=== PATIENT | male | born 1970 | race American Indian/Alaskan Native ===

== ENCOUNTER 2017-09-18 03:23 | Emergency (ER) | payer MEDICARE ==
--- NOTE | 2017-09-18 03:35 | C.PDOC ---
History Of Present Illness Patient presents to the ER requesting a sandwich and place to spend the night, states he is homeless. Denies chest pain, palpitations, or SOB. Time Seen by Provider: 09/18/17 03:34 Chief Complaint (Nursing): Dizziness/Lightheaded History Per: Patient History/Exam Limitations: no limitations Onset/Duration Of Symptoms: Hrs Current Symptoms Are (Timing): Still Present Seizure Or Post-ictal Symptoms: None Fall Associated With With Symptoms: No Recent travel outside of the [place]: No Past Medical History Reviewed: Historical Data, Nursing Documentation, Vital Signs Vital Signs: Last Vital Signs Temp 97.5 F L 09/18/17 03:29 Pulse 75 09/18/17 03:29 Resp 16 09/18/17 03:29 BP 107/65 09/18/17 03:29 Pulse Ox 100 09/18/17 03:43 - Medical History PMH: Anemia, Bipolar Disorder, Diabetes, HTN Surgical History: No Surg Hx Family History: States: No Known Family Hx - Social History Hx Tobacco Use: Yes (heavy smoker) Hx Alcohol Use: No Hx Substance Use: No - Immunization History Hx Tetanus Toxoid Vaccination: No Hx Influenza Vaccination: Yes Hx Pneumococcal Vaccination: No Review Of Systems Constitutional: Negative for: Fever, Chills Cardiovascular: Negative for: Chest Pain, Palpitations Respiratory: Negative for: Shortness of Breath Gastrointestinal: Negative for: Nausea, Vomiting Physical Exam - Physical Exam Appears: Non-toxic, No Acute Distress Skin: Warm, Dry Head: Normacephalic Oral Mucosa: Moist Chest: Symmetrical Cardiovascular: Rhythm Regular Respiratory: No Rales, No Rhonchi, No Wheezing Gastrointestinal/Abdominal: Soft, No Tenderness Neurological/Psych: Oriented x3 ED Course And Treatment O2 Sat by Pulse Oximetry: 100 Pulse Ox Interpretation: Normal Disposition Counseled Patient/Family Regarding: Studies Performed, Diagnosis, Need For Followup - Disposition Referrals: at [facility] [Outside] Disposition: HOME/ ROUTINE Disposition Time: 03:35 Condition: FAIR Instructions: Anxiety (ED) Forms: [facility] (Uruguayan) - Clinical Impression Clinical Impression: Homeless - Scribe Statement The provider has reviewed the documentation as recorded by the Scribe Dwayne Mcgee All medical record entries made by the Scribe were at my direction and personally dictated by me. I have reviewed the chart and agree that the record accurately reflects my personal performance of the history, physical exam, medical decision making, and the department course for this patient. I have also personally directed, reviewed, and agree with the discharge instructions and disposition.
[2017-09-18 05:54] VITALS: BP 112/74; PULSE 72; RESP 18; TEMP 97.2; O2SAT 98
== END 2017-09-18 05:50 | disposition home or self-care (01) ==
LOC: C.ER 03:23
DX: Z59.0 Homelessness (principal); I10 Essential (primary) hypertension; F17.210 Nicotine dependence, cigarettes, uncomplicated

== ENCOUNTER 2017-11-17 00:11 | Emergency (ER) | payer MEDICARE ==
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
[2017-11-17 02:23] VITALS: BP 132/91; PULSE 84; RESP 18; TEMP 98.1
[2017-11-17 04:06] VITALS: O2SAT 99
== END 2017-11-17 02:55 | disposition home or self-care (01) ==
LOC: C.ER 00:11
DX: Z00.00 Encounter for general adult medical examination without abnormal findings (principal); Y04.0XXA Assault by unarmed brawl or fight, initial encounter; I10 Essential (primary) hypertension; E11.9 Type 2 diabetes mellitus without complications; F17.210 Nicotine dependence, cigarettes, uncomplicated

== ENCOUNTER 2018-01-24 13:57 | Emergency (ER) | payer MEDICARE ==
[2018-01-24 14:42] LABS: BASO # 0.1 K/uL (0.0-0.2); EOS # 0.3 K/uL (0.0-0.7); EOS % 4.8 % (0.0-4.0); HEMOGLOBIN 12.1 g/dL (12.0-18.0); LYMPH # 1.7 K/uL (1.0-4.3); MEAN CELL VOLUME 72.5 fL (80.0-94.0); MEAN CORPUSCULAR HEMOGLOBIN 23.5 pg (27.0-31.0); MEAN CORPUSCULAR HGB CONC 32.5 g/dL (33.0-37.0); MEAN PLATELET VOLUME 7.3 fL (7.2-11.7); MONO # 0.5 K/uL (0.0-0.8); MONO % 7.7 % (0.0-10.0); NEUT # 3.7 K/uL (1.8-7.0); NEUT % 59.5 % (50.0-75.0); NRBC % 0.1 % (0.0-2.0); RBC 5.16 Mil/uL (4.40-5.90); RED CELL DISTRIBUTION WIDTH 14.7 % (11.5-14.5); WHITE BLOOD COUNT 6.2 K/uL (4.8-10.8)
[2018-01-24 14:57] LABS: URINE BILIRUBIN NEGATIVE (NEGATIVE); URINE BLOOD NEGATIVE (NEGATIVE); URINE CLARITY Clear (Clear); URINE COLOR Yellow (YELLOW); URINE GLUCOSE (UA) NORMAL (Normal); URINE LEUKOCYTE ESTERASE NEG Leu/uL (Negative); URINE PROTEIN NEGATIVE (NEGATIVE); URINE UROBILINOGEN NORMAL mg/dL (0.2-1.0)
[2018-01-24 15:01] LABS: ALT/SGPT 31 U/L (21-72); AST/SGOT 42 U/L (17-59); BLOOD UREA NITROGEN 16 mg/dL (9-20); CALCIUM 8.9 mg/dl (8.6-10.4); GFR AFRICAN-AMERICAN > 60; GFR NON-AFRICAN AMERICAN > 60
[2018-01-24 15:04] LABS: BARBITURATES, UR NEGATIVE (NEGATIVE); OPIATES, UR NEGATIVE (NEGATIVE); PHENCYCLIDINE, UR NEGATIVE (NEGATIVE)
[2018-01-24 15:27] LABS: BENZODIAZEPINES, UR NEGATIVE (NEGATIVE)
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
[2018-01-24 16:13] VITALS: RESP 18
[2018-01-24 16:48] VITALS: BP 105/78; PULSE 73; TEMP 97.8; O2SAT 96
--- NOTE | 2018-01-26 22:22 | CARD ---
APPROVED REPORT EKG Measurement Heart [id number] [id number] <Conclusion> Sinus rhythm with 1st degree AV block Left axis deviation Septal infarct, age undetermined Abnormal ECG
== END 2018-01-24 16:25 | disposition home or self-care (01) ==
LOC: C.ER 13:57
DX: R42 Dizziness and giddiness (principal)
CPT/HCPCS: 80053; 81001; 85025; 99285; G0480

== ENCOUNTER 2018-02-18 17:56 | Emergency (ER) | payer MEDICARE ==
[2018-02-18 18:21] VITALS: O2SAT 99
--- NOTE | 2018-02-18 19:23 | C.PDOC ---
History Of Present Illness 47 year old male with PMHx of DM presents to the ED c/o headache and left foot pain. Patient reports he does not take anything for his diabetes is just diet controlled. Patient associated his symptoms with diarrhea, increased thirst and urinary frequency. Patient states he is homeless right now. Patient denies CP, SOB, headache, fever, chills, nausea, injury, fall, trauma. Chief Complaint (Nursing): Headache History Per: Patient History/Exam Limitations: no limitations Onset/Duration Of Symptoms: Days Current Symptoms Are (Timing): Gone Quality: "Pain" Preceeding Symptoms: None Recent travel outside of the [place]: No Additional History Per: Patient Past Medical History Reviewed: Historical Data, Nursing Documentation, Vital Signs Vital Signs: Last Vital Signs Temp 97.4 F L 02/18/18 18:17 Pulse 78 02/18/18 18:17 Resp 20 02/18/18 18:17 BP 110/73 02/18/18 18:17 Pulse Ox 99 02/18/18 19:36 - Medical History PMH: Anemia, Bipolar Disorder, Diabetes, HTN Denies: Chronic Kidney Disease Surgical History: No Surg Hx Family History: States: Unknown Family Hx - Social History Hx Tobacco Use: Yes (heavy smoker) Hx Alcohol Use: No Hx Substance Use: No - Immunization History Hx Tetanus Toxoid Vaccination: No Hx Influenza Vaccination: Yes Hx Pneumococcal Vaccination: Yes Review Of Systems Constitutional: Negative for: Fever, Chills Cardiovascular: Negative for: Chest Pain, Palpitations Respiratory: Negative for: Cough Gastrointestinal: Negative for: Abdominal Pain Skin: Negative for: Rash Neurological: Positive for: Headache. Negative for: Dizziness Physical Exam - Physical Exam Appears: Non-toxic, No Acute Distress Skin: Normal Color, Warm, Dry Head: Atraumatic, Normacephalic Eye(s): bilateral: Normal Inspection Nose: No Discharge Oral Mucosa: Moist Teeth: No Normal Dentition (Poor dentition), Edentulous Neck: Normal ROM, Supple Chest: Symmetrical Cardiovascular: Rhythm Regular, No Murmur Respiratory: Normal Breath Sounds, No Rales, No Rhonchi, No Wheezing Gastrointestinal/Abdominal: Soft, No Tenderness, No Guarding, No Rebound Extremity: Normal ROM, No Tenderness, Capillary Refill (< 2 seconds), No Swelling, Other (left foot hammer second toe) Pulses: Left Dorsalis Pedis: Normal, Right Dorsalis Pedis: Normal Neurological/Psych: Oriented x3, Normal Speech, Normal Motor, Normal Sensation Gait: Steady ED Course And Treatment - Laboratory Results Result Diagrams: 02/18/18 19:32 02/18/18 19:32 O2 Sat by Pulse Oximetry: 99 (On RA) Pulse Ox Interpretation: Normal Medical Decision Making Medical Decision Making: Impression: general malaise Plan: * CXR * Labs Disposition - Disposition Referrals: [facility] at [facility] [Outside] Disposition: HOME/ ROUTINE Disposition Time: 22:31 Condition: FAIR Instructions: Viral Syndrome (DC) Forms: [employer] (Spanish) Print Language: AZERI - Clinical Impression Clinical Impression: Hammer toe, Viral syndrome - Scribe Statement The provider has reviewed the documentation as recorded by the Scribe Valentin Coto All medical record entries made by the Scribe were at my direction and personally dictated by me. I have reviewed the chart and agree that the record accurately reflects my personal performance of the history, physical exam, medical decision making, and the department course for this patient. I have also personally directed, reviewed, and agree with the discharge instructions and disposition.
[2018-02-18 19:36] LABS: BASO # 0.1 K/uL (0.0-0.2); BASO % 0.8 % (0.0-2.0); EOS # 0.2 K/uL (0.0-0.7); EOS % 3.2 % (0.0-4.0); LYMPH # 1.6 K/uL (1.0-4.3); MEAN CELL VOLUME 72.6 fL (80.0-94.0); MEAN CORPUSCULAR HEMOGLOBIN 23.2 pg (27.0-31.0); MEAN PLATELET VOLUME 8.2 fL (7.2-11.7); MONO # 0.6 K/uL (0.0-0.8); MONO % 9.8 % (0.0-10.0); NEUT # 3.7 K/uL (1.8-7.0); NEUT % 60.2 % (50.0-75.0); RBC 4.73 Mil/uL (4.40-5.90); RED CELL DISTRIBUTION WIDTH 14.5 % (11.5-14.5); WHITE BLOOD COUNT 6.2 K/uL (4.8-10.8)
[2018-02-18 19:47] LABS: BLOOD UREA NITROGEN 14 mg/dL (9-20); CALCIUM 9.2 mg/dl (8.6-10.4); GFR AFRICAN-AMERICAN > 60; GFR NON-AFRICAN AMERICAN > 60
[2018-02-18 23:43] VITALS: BP 121/76; PULSE 83; RESP 18; TEMP 98
--- NOTE | 2018-02-19 08:24 | RAD ---
PROCEDURE: CHEST RADIOGRAPH, 1 VIEW HISTORY: SOB COMPARISON: 10/22/2015 FINDINGS: LUNGS: Clear. PLEURA: No pneumothorax or pleural fluid seen. CARDIOVASCULAR: Normal. OSSEOUS STRUCTURES: Healed fracture right 7th posterior rib. VISUALIZED UPPER ABDOMEN: Normal. OTHER FINDINGS: None. IMPRESSION: No active disease.
== END 2018-02-18 22:06 | disposition home or self-care (01) ==
LOC: C.ER 17:56
DX: B34.9 Viral infection, unspecified (principal); M20.42 Other hammer toe(s) (acquired), left foot; E11.9 Type 2 diabetes mellitus without complications; I10 Essential (primary) hypertension; D64.9 Anemia, unspecified; F17.210 Nicotine dependence, cigarettes, uncomplicated

== ENCOUNTER 2018-12-26 01:19 | Emergency (ER) | payer MEDICARE ==
[2018-12-26 01:42] VITALS: RESP 20
--- NOTE | 2018-12-26 03:23 | C.PDOC ---
History Of Present Illness 48 year old homeless male presents to the ED c/o left forearm pain. Patient has a recent left forearm fracture for which was seen at [facility]. Patient was placed on a splint, however he claims today he fell and accidentally broke his splint. Patient is worried he might have injured his left forearm again. Patient denies LOC, headache, weakness, numbness. Time Seen by Provider: 12/26/18 01:52 Chief Complaint (Nursing): Upper Extremity Problem/Injury History Per: Patient History/Exam Limitations: no limitations Onset/Duration Of Symptoms: Days Current Symptoms Are (Timing): Still Present Quality: "Pain" Exacerbating Factor(s): Strenuous Use Of Affected Area, Movement Recent travel outside of the [place]: No Additional History Per: Patient Past Medical History Reviewed: Historical Data, Nursing Documentation, Vital Signs Vital Signs: Last Vital Signs Temp 97.9 F 12/26/18 01:40 Pulse 79 12/26/18 01:40 Resp 20 12/26/18 01:40 BP 112/72 12/26/18 01:40 Pulse Ox 100 12/26/18 01:40 - Medical History PMH: Anemia, Bipolar Disorder, Diabetes, HTN Denies: Chronic Kidney Disease Surgical History: No Surg Hx Family History: States: Unknown Family Hx - Social History Hx Tobacco Use: Yes (heavy smoker) Hx Alcohol Use: No Hx Substance Use: No - Immunization History Hx Tetanus Toxoid Vaccination: No Hx Influenza Vaccination: Yes Hx Pneumococcal Vaccination: Yes Review Of Systems Constitutional: Negative for: Fever, Chills Cardiovascular: Negative for: Chest Pain Respiratory: Negative for: Shortness of Breath Gastrointestinal: Negative for: Nausea, Vomiting, Abdominal Pain Musculoskeletal: Positive for: Arm Pain Skin: Negative for: Rash Neurological: Negative for: Weakness, Numbness, Headache, Dizziness Physical Exam - Physical Exam Appears: Non-toxic, No Acute Distress Skin: Normal Color, Warm, Dry Head: Atraumatic, Normacephalic Eye(s): bilateral: Normal Inspection Neck: Normal ROM, Supple Extremity: No Normal ROM (left arm due to pain), Tenderness (posterior aspect mid to distal left forearm ), Capillary Refill (< 2 seconds), Deformity (noted on left posterior forearm), Swelling (minimal left hand), Other (no erythema or open wounds noted on left forearm ) Extremity: Bilateral: Normal Color And Temperature Pulses: Left Radial: Normal, Right Radial: Normal Neurological/Psych: Oriented x3, Normal Speech, Normal Cognition, Normal Motor, Normal Sensation Gait: Steady ED Course And Treatment O2 Sat by Pulse Oximetry: 100 (ON RA) Pulse Ox Interpretation: Normal - Other Rad Left forearm X-Ray X-Ray: Interpreted by Me, Viewed By Me Interpretation: non acute mid shaft ulnar fracture Progress Note: Patient was placed on a new short arm splint on his left forearm done by CP and checked by me. Patient is advised to follow up with ortho clinic for further evaluation. Disposition Counseled Patient/Family Regarding: Diagnosis, Need For Followup - Disposition Referrals: [facility] at [place] [Outside] [facility] [Outside] Disposition: HOME/ ROUTINE Disposition Time: 04:06 Condition: GOOD Additional Instructions: Keep splint on until seen in clinic by orthopedist Return to ER if worse Instructions: Forearm Fracture (DC) Forms: [facility] (Kenyan) - Clinical Impression Clinical Impression: Left forearm fracture - PA / INSTRUMENT TECHNOLOGIST / Resident Statement MD/DO has reviewed & agrees with the documentation as recorded. - Scribe Statement The provider has reviewed the documentation as recorded by the Scribe Valentin Coto All medical record entries made by the Heleanibsania were at my direction and personally dictated by me. I have reviewed the chart and agree that the record accurately reflects my personal performance of the history, physical exam, medical decision making, and the department course for this patient. I have also personally directed, reviewed, and agree with the discharge instructions and disposition.
[2018-12-26 06:18] VITALS: BP 138/78; PULSE 84; TEMP 98; O2SAT 97
--- NOTE | 2018-12-26 12:55 | RAD ---
Date of service: 12/26/2018 PROCEDURE: Radiographs of the Left Forearm HISTORY: s/p fx, fell today COMPARISON: None available. TECHNIQUE: Frontal and lateral views obtained. FINDINGS: BONES: There is a nonunited transverse fracture in the distal diaphysis of the ulna. There is no acute displaced fracture. Bone alignment is normal. JOINT SPACES: Unremarkable. OTHER FINDINGS: None. IMPRESSION: No acute displaced fracture or dislocation. Nonunited transverse fracture in the distal diaphysis of ulna.
== END 2018-12-26 06:16 | disposition home or self-care (01) ==
LOC: C.ER 01:19
DX: S52.692G Other fracture of lower end of left ulna, subsequent encounter for closed fracture with delayed healing (principal); W18.30XD Fall on same level, unspecified, subsequent encounter

== ENCOUNTER 2019-01-13 20:53 | Emergency (ER) | payer MEDICARE ==
[2019-01-13 21:22] VITALS: RESP 20
[2019-01-13] MEDS ORDERED: Sodium Chloride 0.9% 500 ML IV ONE (21:24)
[2019-01-13] MEDS ORDERED: Sodium Chloride 0.9% 1,000 ML IV ONE (21:25)
--- NOTE | 2019-01-13 21:25 | C.PDOC ---
History Of Present Illness 48 year old male with PMHx of DM presents to the ED c/o dizziness and lightheadedness for the past few days. Patient reports he feels like his mouth his dry. Patient denies fever, chills, nausea, vomit, diarrhea, headache, rash, CP, SOB, palpitations. Chief Complaint (Nursing): Medical Clearance History Per: Patient History/Exam Limitations: no limitations Onset/Duration Of Symptoms: Days Current Symptoms Are (Timing): Still Present Recent travel outside of the [place]: No Additional History Per: Patient Past Medical History Reviewed: Historical Data, Nursing Documentation, Vital Signs Vital Signs: Last Vital Signs Temp 97.9 F 01/13/19 21:17 Pulse 95 H 01/13/19 21:17 Resp 20 01/13/19 21:17 BP 113/71 01/13/19 21:17 Pulse Ox 100 01/13/19 21:17 - Medical History PMH: Anemia, Bipolar Disorder, Diabetes, HTN Denies: Chronic Kidney Disease Surgical History: No Surg Hx Family History: States: Unknown Family Hx - Social History Hx Tobacco Use: Yes (heavy smoker) Hx Alcohol Use: Yes Hx Substance Use: No - Immunization History Hx Tetanus Toxoid Vaccination: No Hx Influenza Vaccination: No Hx Pneumococcal Vaccination: No Review Of Systems Constitutional: Negative for: Fever, Chills Cardiovascular: Negative for: Chest Pain, Palpitations Respiratory: Negative for: Shortness of Breath Gastrointestinal: Negative for: Nausea, Vomiting, Abdominal Pain Skin: Negative for: Rash Neurological: Negative for: Weakness, Numbness, Headache, Dizziness Physical Exam - Physical Exam Appears: Non-toxic, No Acute Distress Skin: Normal Color, Warm, Dry Head: Atraumatic, Normacephalic Eye(s): bilateral: Normal Inspection Oral Mucosa: Moist Neck: Normal ROM, Supple Chest: Symmetrical Cardiovascular: Rhythm Regular Respiratory: Normal Breath Sounds, No Rales, No Rhonchi, No Wheezing Gastrointestinal/Abdominal: Soft, No Tenderness, No Guarding, No Rebound Extremity: Normal ROM, No Tenderness, No Swelling Neurological/Psych: Oriented x3, Normal Speech, Normal Cognition, Other (non focal) Gait: Steady ED Course And Treatment - Laboratory Results Result Diagrams: 01/13/19 21:36 01/13/19 21:36 ECG: Interpreted By Me, Viewed By Me ECG Rhythm: Sinus Rhythm ECG Interpretation: No Acute Changes Interpretation Of ECG: Sinus rhythm with 1st degree AV block, poor R wave progression V1 to V3, no nacute changes, abnormal tracings. Rate From EC O2 Sat by Pulse Oximetry: 100 (ON RA) Pulse Ox Interpretation: Normal Medical Decision Making Medical Decision Making: Plan: * Labs * EKG * IV fluids * UA Disposition Counseled Patient/Family Regarding: Diagnosis - Disposition Referrals: [facility] at [facility] [Outside] Disposition: HOME/ ROUTINE Disposition Time: 22:05 Condition: STABLE Forms: [employer] (Cambodian) - POA Present On Arrival: None - Clinical Impression Clinical Impression: Medical assessment, No acute medical problems - Scribe Statement The provider has reviewed the documentation as recorded by the Scribe Valentin Coto All medical record entries made by the Scribe were at my direction and personally dictated by me. I have reviewed the chart and agree that the record accurately reflects my personal performance of the history, physical exam, medical decision making, and the department course for this patient. I have also personally directed, reviewed, and agree with the discharge instructions and disposition.
[2019-01-13 21:39] LABS: BASO # 0.1 K/uL (0.0-0.2); BASO % 1.2 % (0.0-2.0); EOS # 0.3 K/uL (0.0-0.7); EOS % 4.7 % (0.0-4.0); HEMOGLOBIN 11.5 g/dL (12.0-18.0); LYMPH # 1.9 K/uL (1.0-4.3); LYMPH % 30.7 % (20.0-40.0); MEAN CELL VOLUME 71.4 fL (80.0-94.0); MEAN CORPUSCULAR HEMOGLOBIN 22.5 pg (27.0-31.0); MEAN CORPUSCULAR HGB CONC 31.5 g/dL (33.0-37.0); MEAN PLATELET VOLUME 7.6 fL (7.2-11.7); MONO # 0.6 K/uL (0.0-0.8); MONO % 9.6 % (0.0-10.0); NEUT # 3.3 K/uL (1.8-7.0); NEUT % 53.8 % (50.0-75.0); RBC 5.14 Mil/uL (4.40-5.90); RED CELL DISTRIBUTION WIDTH 13.6 % (11.5-14.5); WHITE BLOOD COUNT 6.2 K/uL (4.8-10.8)
--- NOTE | 2019-01-13 21:44 | C.PDOC ---
History Of Present Illness DUPLICATE CHART Chief Complaint (Nursing): Medical Clearance Past Medical History Vital Signs: Last Vital Signs Temp 97.9 F 01/13/19 21:17 Pulse 95 H 01/13/19 21:17 Resp 20 01/13/19 21:17 BP 113/71 01/13/19 21:17 Pulse Ox 100 01/13/19 21:17 - Medical History PMH: Anemia, Bipolar Disorder, Diabetes, HTN Denies: Chronic Kidney Disease Family History: States: Unknown Family Hx - Social History Hx Tobacco Use: Yes (heavy smoker) Hx Alcohol Use: Yes Hx Substance Use: No - Immunization History Hx Tetanus Toxoid Vaccination: No Hx Influenza Vaccination: No Hx Pneumococcal Vaccination: No ED Course And Treatment - Laboratory Results Result Diagrams: 01/13/19 21:36 01/13/19 21:36 O2 Sat by Pulse Oximetry: 100 Disposition - Disposition Referrals: [facility] [Outside] Disposition: HOME/ ROUTINE Condition: STABLE Forms: [facility] (Hungarian) - Clinical Impression Clinical Impression: Medical assessment, No acute medical problems
[2019-01-13 21:50] LABS: ALB/GLOB RATIO 1.2 (1.0-2.1); ALBUMIN 4.1 g/dL (3.5-5.0); ALT/SGPT 16 U/L (21-72); AST/SGOT 32 U/L (17-59); BLOOD UREA NITROGEN 19 mg/dL (9-20); CALCIUM 9.4 mg/dl (8.6-10.4); GFR NON-AFRICAN AMERICAN > 60
[2019-01-13 23:25] VITALS: BP 107/69
[2019-01-13 23:26] VITALS: PULSE 80; TEMP 98.2
--- NOTE | 2019-01-15 21:08 | CARD ---
APPROVED REPORT Date of service: 01/13/2019 EKG Measurement Heart [id number] <Conclusion> Sinus rhythm with 1st degree AV block Left axis deviation Septal infarct, age undetermined Abnormal ECG
[2019-01-16 19:30] VITALS: O2SAT 98
== END 2019-01-13 23:35 | disposition home or self-care (01) ==
LOC: C.ER 20:53
DX: Z00.00 Encounter for general adult medical examination without abnormal findings (principal)
CPT/HCPCS: 80053; 82948; 85025; 93005; 99283; J7030; J7040

== ENCOUNTER 2019-03-20 02:49 | Emergency (ER) | payer MEDICARE, MEDICAID ==
[2019-03-20 03:24] VITALS: O2SAT 100
--- NOTE | 2019-03-20 03:45 | C.PDOC ---
History Of Present Illness 48 year old male presents to the ED c/o diarrhea, that resolved [employer]. Patient denies fever, chills, nausea, vomit, abdominal pain, dysuria, hematuria, recent travel, sick contacts. Time Seen by Provider: 03/20/19 03:12 Chief Complaint (Nursing): Medical Clearance History Per: Patient History/Exam Limitations: no limitations Onset/Duration Of Symptoms: Days Current Symptoms Are (Timing): Better Recent travel outside of the [place]: No Additional History Per: Patient Past Medical History Reviewed: Historical Data, Nursing Documentation, Vital Signs Vital Signs: Last Vital Signs Temp 97.6 F 03/20/19 03:07 Pulse 74 03/20/19 03:07 Resp 20 03/20/19 03:07 BP 114/70 03/20/19 03:07 Pulse Ox 100 03/20/19 03:07 Primary Care Provider: Fannie Byrd - Medical History PMH: Anemia, Bipolar Disorder, Diabetes, HTN Denies: Chronic Kidney Disease Surgical History: No Surg Hx Family History: States: Unknown Family Hx - Social History Hx Tobacco Use: Yes (heavy smoker) Hx Alcohol Use: Yes Hx Substance Use: No - Immunization History Hx Tetanus Toxoid Vaccination: No Hx Influenza Vaccination: No Hx Pneumococcal Vaccination: Yes Review Of Systems Constitutional: Negative for: Fever, Chills Cardiovascular: Negative for: Chest Pain Respiratory: Negative for: Shortness of Breath Gastrointestinal: Positive for: Diarrhea. Negative for: Nausea, Vomiting, Abdominal Pain Genitourinary: Negative for: Dysuria Musculoskeletal: Negative for: Back Pain Skin: Negative for: Rash Physical Exam - Physical Exam Appears: Non-toxic, No Acute Distress Skin: Normal Color, Warm, Dry Head: Atraumatic, Normacephalic Eye(s): bilateral: Normal Inspection Neck: Normal ROM, Supple Chest: Symmetrical Cardiovascular: Rhythm Regular Respiratory: Normal Breath Sounds, No Rales, No Rhonchi, No Wheezing Gastrointestinal/Abdominal: Soft, No Tenderness, No Distention Extremity: Normal ROM, No Tenderness, No Swelling Neurological/Psych: Oriented x3, Normal Speech, Normal Cognition Gait: Steady ED Course And Treatment O2 Sat by Pulse Oximetry: 100 (ON RA) Pulse Ox Interpretation: Normal Medical Decision Making Medical Decision Making: The patient is requesting food. On re-exam, the patient reports improvement of symptoms. Lungs are CTA, heart is RRR, abdomen is soft, non-tender and toleratin g PO well. Ambulatory in the ED with steady gait. Follow up with the medical doctor within 1-2 days. Return if worsened. Disposition - Disposition Referrals: Fannie Byrd MD [Medical Doctor] - Disposition: HOME/ ROUTINE Disposition Time: 04:44 Condition: GOOD Additional Instructions: Follow up with the medical doctor within 1-2 days. Return if worsened. 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 - Scribe Statement The provider has reviewed the documentation as recorded by the Scribe Valentin Coto All medical record entries made by the Scribe were at my direction and personally dictated by me. I have reviewed the chart and agree that the record accurately reflects my personal performance of the history, physical exam, medical decision making, and the department course for this patient. I have also personally directed, reviewed, and agree with the discharge instructions and disposition.
[2019-03-20 06:05] VITALS: BP 116/72; PULSE 76; RESP 16; TEMP 97.9
== END 2019-03-20 06:05 | disposition home or self-care (01) ==
LOC: C.ER 02:49
DX: R19.7 Diarrhea, unspecified (principal); Z59.0 Homelessness; I10 Essential (primary) hypertension; E11.9 Type 2 diabetes mellitus without complications; F17.200 Nicotine dependence, unspecified, uncomplicated

== ENCOUNTER 2019-03-31 04:52 | Emergency (ER) | payer MEDICARE, MEDICAID ==
[2019-03-31 05:06] VITALS: RESP 14; TEMP 97
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
[2019-03-31 06:32] VITALS: BP 110/80; PULSE 80
[2019-03-31 06:34] VITALS: O2SAT 96
== END 2019-03-31 06:32 | disposition home or self-care (01) ==
LOC: C.ER 04:52
DX: S00.11XA Contusion of right eyelid and periocular area, initial encounter (principal); Y04.0XXA Assault by unarmed brawl or fight, initial encounter; E11.9 Type 2 diabetes mellitus without complications; I10 Essential (primary) hypertension; F31.9 Bipolar disorder, unspecified; F17.210 Nicotine dependence, cigarettes, uncomplicated